=== PATIENT | male | born 1985 | race Caucasian/White ===

== ENCOUNTER 2023-06-19 01:54 | Emergency (ER) | payer OTHER ==
[~2023-06-19] VITALS: Ht 185.4 cm; Wt 154.2 kg
[2023-06-19 02:34] LABS: ALANINE AMINOTRANSFERASE 52 U/L (16-63); ALKALINE PHOSPHATASE 82 U/L (50-136); ASPARTATE AMINOTRANSFERASE 23 U/L (15-37); BILIRUBIN,DIRECT 0.1 mg/dL (0.0-0.2); BILIRUBIN,TOTAL 0.6 mg/dL (0.2-1.0); CARBON DIOXIDE 24 mmol/L (21-32); CHLORIDE 104 mmol/L (98-107); CREATININE 1.4 mg/dL (0.6-1.3); POTASSIUM 3.7 mmol/L (3.5-5.1); TOTAL PROTEIN, SERUM 7.4 g/dL (6.4-8.2); UREA NITROGEN, BLOOD 36 mg/dL (7-18)
[2023-06-19 02:39] LABS: HEMATOCRIT 39.5 % (36.7-47.1); MEAN CORPUSCULAR HEMOGLOBIN 28.7 uug (23.8-33.4); MEAN CORPUSCULAR VOLUME 84.8 fL (73.0-96.2); PLATELET COUNT (AUTO) 213 K/uL (152-348)
[2023-06-19 02:52] LABS: THYROID STIMULATING HORMONE 0.768 mIU/mL (0.358-3.740)
--- NOTE | 2023-06-19 03:00 | NUR ---
The patient was [place] from a [facility] for [employer]. 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
--- NOTE | 2023-06-19 04:30 | NUR ---
Azul, crisis team, at bedside evaluating the patient.
[2023-06-19] MEDS ORDERED: HALOPERIDOL 0.5 MG TABLET PO ONE (05:00)
[2023-06-19] MEDS ORDERED: HALOPERIDOL 0.5 MG TABLET ONE (05:03)
[2023-06-19 08:15] LABS: *BILIRUBIN,URIN NEGATIVE (NEGATIVE); *BLOOD, URINE NEGATIVE (NEGATIVE); *CLARITY,URINE CLEAR (CLEAR); *COLOR,URINE YELLOW (YELLOW); *KETONES,URINE NEGATIVE (NEGATIVE); *UROBILINOGEN,URINE 0.2 E.U./dl (NORMAL); LEUKOCYTE ESTERASE ,URINE TRACE (NEGATIVE); NITRITE, URINE NEGATIVE (NEGATIVE); PH,URINE 5.5 (5.0-8.0); UGLUCOSE NEGATIVE (NEGATIVE)
--- NOTE | 2023-06-19 08:21 | NUR ---
0714am: Hr Systems Analyst assumes care, SBAR received from DAVID Quarles and DAVID Hawthorne. 1st contact with patient: patient is asleep, easily arousable, respiration:easy, unlabored, even & regular, pending urine sample@this time. 0740am: Patient is seen standing with his PIV line out. Patient wants to use the bathroom to do BM. Patient was reminded to provide urine sample. 0811am: Patient gave minimal amount of urine sample. Urine sent to lab. 0820am: Patient ate breakfast with good appetite. Patient is now looking for his belongings. civil preparedness officer Sonny notified.
[2023-06-19 08:39] LABS: *AMPHETAMINE, URINE POSITIVE (NEGATIVE); *CANNABINOID, URINE POSITIVE (NEGATIVE); *COCCAINE, URINE NEGATIVE (NEGATIVE); *PHENCYCLIDINE SCREEN,URINE NEGATIVE (NEGATIVE)
[2023-06-19 09:23] LABS: BACTERIA,URINE FEW /HPF (NONE SEEN); RBC,URINE 0-3 /HPF (0-3); SQUAMOUS EPITHELIAL CELL,UR FEW /HPF (NONE SEEN)
--- NOTE | 2023-06-19 09:39 | NUR ---
Dr Blake is at bedside.
--- NOTE | 2023-06-19 10:02 | NUR ---
Patient is for discharge per Dr Blake, pending written discharge papers@this time.
[2023-06-19 11:00] VITALS: O2SAT 99
--- NOTE | 2023-06-19 11:14 | NUR ---
Patient is resting comfortably on gurney with eyes closed, NAD.
--- NOTE | 2023-06-19 11:27 | NUR ---
Patient was given written and verbal discharge instructions. Patient verbalized understanding of instructions, +ambulatory with steady gait. Offer of half-way placement-done. Patient was given list of available shelters in surrounding area. Patient left ER in stable condition.
--- NOTE | 2023-06-20 09:23 | NUR ---
Late Entry Received phone call from Dr Blake on 06/19/23 at 949. She asked of she could discharge this patient who was seen by Azul who had suggested reevaluation in the morning. Dr Blake said she was observing no criteria for keeping the patient or for having a reevaluation by crisis team. Patient was not suicidal or homicidal and asked if it was acceptable to discharge him. This clinician said this was certainly within her purview. She planned to discharge the patient.
== END 2023-06-19 11:29 | disposition home or self-care (01) ==
LOC: ER 01:54
DX: R41.0 Disorientation, unspecified (principal); R40.0 Somnolence; F20.9 Schizophrenia, unspecified; F31.9 Bipolar disorder, unspecified; Z88.0 Allergy status to penicillin
CPT/HCPCS: 36415; 84443; 85025; 85730; A4663; G0480